=== PATIENT | female | born 1990 ===

== ENCOUNTER 2020-11-05 18:36 | Emergency (ER) | payer MEDICAID ==
[~2020-11-05] VITALS: Ht 157.5 cm; Wt 86.8 kg
[2020-11-05 19:28] LABS: BASOPHILS % (AUTO) 1 % (0-1); EOSINOPHILS % (AUTO) 0 % (1-7); LYMPHOCYTES % (AUTO) 19 % (22-44); MEAN CORPUSCULAR HEMOGLOBIN 31.1 pg (27.0-34.8); MEAN CORPUSCULAR HGB CONC 34.3 g/dL (32.4-35.8); MEAN PLATELET VOLUME 7.5 fL (7.4-10.4); MONOCYTES % (AUTO) 5 % (2-9); NEUTROPHILS % (AUTO) 76 % (42-75); PLATELET COUNT 272 x10^3/uL (130-400); RED BLOOD COUNT 5.17 x10^6/uL (3.82-5.3); RED CELL DISTRIBUTION WIDTH 12.9 % (9.6-15.2)
[2020-11-05 19:29] LABS: MD NO
[2020-11-05 19:37] LABS: ALANINE AMINOTRANSFERASE 24 U/L (12-78); ALBUMIN 3.7 g/dL (3.4-5.0); ANION GAP 4 mmol/L (5-15); CALCIUM 8.5 mg/dL (8.5-10.1); CHLORIDE 106 mmol/L (98-107); CREATININE 0.82 mg/dL (0.55-1.02)
[2020-11-05 19:42] LABS: ALKALINE PHOSPHATASE 72 U/L (45-117); BILIRUBIN,TOTAL 0.9 mg/dL (0.2-1.0); TOTAL PROTEIN 7.8 g/dL (6.4-8.2)
--- NOTE | 2020-11-05 19:50 | NUR ---
PT TO ROOM FROM LOBBY
--- NOTE | 2020-11-05 19:55 | NUR ---
PT AMBULATORY WITH STEADY GAIT TO BATHROOM TO PROVDE URINE SAMPLE. SAMPLE SENT TO LAB. PT RETURNED TO ROOM. SITTING UPRIGHT ON [place] VSS. PT DENIES ANY NEEDS AT THIS TIME. CALL LIGHT AND PERSONAL BELONGINGS WITHIN REACH.
[2020-11-05 20:01] VITALS: BP 148/82
[2020-11-05 20:17] LABS: MICROSCOPIC INDICATED
--- NOTE | 2020-11-05 21:15 | NUR ---
UPON ENTRY INTO ROOM, PT NOT IN ROOM. PT ELOPED. UNABLE TO FIND PT IN DEPARTMENT OR WATING ROOM AT THIS TIME. ERP AWARE.
== END 2020-11-05 21:36 | disposition left against medical advice (07) ==
LOC: ED 19:06
DX: N89.8 Other specified noninflammatory disorders of vagina (principal); R10.30 Lower abdominal pain, unspecified; R10.9 Unspecified abdominal pain; F17.210 Nicotine dependence, cigarettes, uncomplicated; Z98.51 Tubal ligation status
CPT/HCPCS: 36415; 80053; 81001; 84703; 85025; 87086; 87491; 87591; 99283; 99406